=== PATIENT | male | born 1980 | race Caucasian/White ===

== ENCOUNTER 2023-08-31 19:51 | Emergency (ER) | payer OTHER ==
--- NOTE | 2023-08-31 20:30 | ED ---
General Adult HPI - General Source: patient, RN notes reviewed Mode of arrival: ambulatory Limitations: no limitations <Teresa Lincoln - Last Filed: 08/31/23 20:28> <Kimberli Grayson - Last Filed: 09/01/23 01:23> - General Chief complaint: Dental/Oral Stated complaint: Abcess Tooth Time Seen by Provider: 08/31/23 20:20 - History of Present Illness Initial comments: Quick note: 42-year-old male presents to the emergency department for evaluation of possible dental abscess. He states that his teeth have been bothering him for the past 3 to 4 days. He notes that he believes he has an abscess in the lower left dentition. He has not with this in the past. He is not currently on antibiotics. (Teresa Lincoln) 42-year-old male presenting with chief complaint of dental pain. Patient has known history of multiple dental caries and fractured teeth. States that for the last 4 days or so he has had pain and swelling to the left lower jaw. States that this feels similar to previous dental abscesses. He does not follow-up with a dentist, just got new insurance and is trying to find 1. No difficulty breathing or swallowing. No fevers or chills. No neck pain or stiffness. No drooling or muffled voice. (Kimberli Grayson) - Related Data Previous Rx's Medication Instructions Recorded Amoxic-Pot Clav 875-125Mg 1 tab PO BID 7 Days #14 tab 08/31/23 [Augmentin 875-125] Allergies Allergy/AdvReac Type Severity Reaction Status Date / Time No Known Allergies Allergy Verified 08/31/23 20:20 Review of Systems ROS Other: All systems not noted in ROS Statement are negative. <Teresa Lincoln - Last Filed: 08/31/23 20:28> ROS Other: All systems not noted in ROS Statement are negative. <Kimberli Grayson - Last Filed: 09/01/23 01:23> ROS Statement: Those systems with pertinent positive or pertinent negative responses have been documented in the HPI. Past Medical History Past Medical History: No Reported History History of Any Multi-Drug Resistant Organisms: None Reported Additional Past Surgical History / Comment(s): dental Past Psychological History: No Psychological Hx Reported Smoking Status: Current every day smoker Past Alcohol Use History: None Reported Past Drug Use History: None Reported <Teresa Lincoln - Last Filed: 08/31/23 20:28> General Exam Limitations: no limitations <Teresa Lincoln - Last Filed: 08/31/23 20:28> Limitations: no limitations General appearance: alert, in no apparent distress Head exam: Present: atraumatic, normocephalic Eye exam: Present: normal appearance, EOMI Expanded Mouth exam: Present: tongue normal. Absent: drooling, trismus, muffled voice Teeth exam: Present: dental caries, fractured tooth #, dental tenderness # Throat exam: normal inspection Neck exam: Present: normal inspection. Absent: meningismus Respiratory exam: Absent: respiratory distress Cardiovascular Exam: Present: regular rate Neurological exam: Present: alert, oriented X3 Psychiatric exam: Present: normal affect, normal mood Skin exam: Present: warm, dry <Kimberli Grayson - Last Filed: 09/01/23 01:23> - General Exam Comments Initial Comments: Visual Physical Exam Vital signs reviewed General: Well-appearing, nontoxic, no acute distress. Head: Normocephalic, atraumatic Eyes: PERRLA, EOMI ENT: Airway patent Chest: Nonlabored breathing Skin: No visual rash, normal skin tone Neuro: Alert and oriented 3 Musculoskeletal: No gross abnormalities (Teresa Lincoln) Course Vital Signs 08/31/23 20:18 Temperature 97.8 F Pulse Rate 90 Respiratory 18 Rate Blood Pressure 146/97 O2 Sat by Pulse 99 Oximetry Medical Decision Making <Teresa Lincoln - Last Filed: 08/31/23 20:28> <Kimberli Grayson - Last Filed: 09/01/23 01:23> - Medical Decision Making Quick note preformed and electronically signed by Teresa Lincoln PA-C (Teresa Lincoln) Was pt. sent in by a medical professional or institution (ANAYELI Pimentel, [employer]LECT[employer], urgent care, hospital, or detention...) When possible be specific @ -No Did you speak to anyone other than the patient for history (EMS, parent, family, police, friend...)? What history was obtained from this source @ -No Did you review nursing and triage notes (agree or disagree)? Why? @ -I reviewed and agree with nursing and triage notes Were old charts reviewed (outside hosp., previous admission, EMS record, old EKG, old radiological studies, urgent care reports/EKG's, detention records)? Report findings @ -No old charts were reviewed Differential Diagnosis (chest pain, altered mental status, abdominal pain women, abdominal pain men, vaginal bleeding, weakness, fever, dyspnea, syncope, headache, dizziness, GI bleed, back pain, seizure, CVA, palpatations, mental hea lth, musculoskeletal)? @ -Differential includes dental pain, dental abscess, Byron's angina, this is not an all-inclusive list EKG interpreted by me (3pts min.). @ -As above X-rays interpreted by me (1pt min.). @ -None done CT interpreted by me (1pt min.). @ -None done U/S interpreted by me (1pt. min.). @ -None done What testing was considered but not performed or refused? (CT, X-rays, U/S, labs)? Why? @ -None What meds were considered but not given or refused? Why? @ -None Did you discuss the management of the patient with other professionals (professionals i.e. , PA, ELECTRONIC GLUER, lab, RT, psych nurse, social work lecturer, mission planner, teacher, juvenile officer, outsole caser)? Give summary @ -No Was smoking cessation discussed for >3mins.? @ -No Was critical care preformed (if so, how long)? @ -No Were there social determinants of health that impacted care today? How? (Homelessness, low income, unemployed, alcoholism, drug addiction, transportation, low edu. Level, literacy, decrease access to med. care, long-term, rehab)? @ -No Was there de-escalation of care discussed even if they declined (Discuss DNR or withdrawal of care, Hospice)? DNR status @ -No What co-morbidities impacted this encounter? (DM, HTN, Smoking, COPD, CAD, Cancer, CVA, ARF, Chemo, Hep., AIDS, mental health diagnosis, sleep apnea, morbid obesity)? @ -None Was patient admitted / discharged? Hospital course, mention meds given and route, prescriptions, significant lab abnormalities, going to OR and other pertinent info. @ -42-year-old male presenting with chief complaint of dental pain and swelling to the left lower jaw. On exam there are multiple dental caries with dental tenderness. There is no obvious drainable abscess. Patient will be started on Augmentin. Provided with dental clinic follow-up. Discharged home. Follow-up with PCP. Report back to ER with any new or worsening symptoms. Discussed return parameters and answered all questions. Patient conveyed verbal understanding and agreed to the plan. I discussed this case in detail with my attending Dr. Olivier Undiagnosed new problem with uncertain prognosis? @ -No Drug Therapy requiring intensive monitoring for toxicity (Heparin, Nitro, Insulin, Cardizem)? @ -No Were any procedures done? @ -No Diagnosis/symptom? @ -Dental abscess Acute, or Chronic, or Acute on Chronic? @ -Acute Uncomplicated (without systemic symptoms) or Complicated (systemic symptoms)? @ -Uncomplicated Side effects of treatment? @ -No Exacerbation, Progression, or Severe Exacerbation? @ -No Poses a threat to life or bodily function? How? (Chest pain, [place], [place], pneumonia, PE, COPD, DKA, ARF, appy, cholecystitis, CVA, Diverticulitis, Homicidal, Suicidal, threat to staff... and all critical care pts) @ -No (Kimberli Grayson) Disposition <Teresa Lincoln - Last Filed: 08/31/23 20:28> Is patient prescribed a controlled substance at d/c from ED?: No Time of Disposition: 21:29 <Kimberli Grayson - Last Filed: 09/01/23 01:23> Clinical Impression: Dental abscess Disposition: HOME SELF-CARE Condition: Good Instructions (If sedation given, give patient instructions): Dental Abscess (ED) Additional Instructions: Please follow up with the [facility] dental clinic. [facility] [place] [address]. Phone number for new patients or [phone] for existing patients. Prescriptions: Amoxic-Pot Clav 875-125Mg [Augmentin 875-125] 1 tab PO BID 7 Days #14 tab Referrals: Leilani Rodríguez MD [Primary Care Provider] - 1-2 days
[2023-08-31 21:36] VITALS: BP 146/97; PULSE 90; RESP 18; TEMP 97.8
[2023-08-31] MEDS: ACET/COD 300 MG/30 MG STARTER PACK 6 TAB BTL PO STA (22:06)
[2023-08-31] MEDS: AMOXIC-POT CLAV 875MG STARTER PACK 2 TAB BTL PO STA (22:06)
== END 2023-08-31 22:07 | disposition home or self-care (01) ==
LOC: EC 19:51
DX: K04.7 Periapical abscess without sinus (principal); F17.200 Nicotine dependence, unspecified, uncomplicated
CPT/HCPCS: 99282

== ENCOUNTER 2024-04-17 16:00 | Emergency (ER) | payer OTHER ==
[2024-04-17 16:17] VITALS: RESP 18
--- NOTE | 2024-04-17 16:42 | ED ---
General Adult HPI - General Chief complaint: Dental/Oral Stated complaint: Dental pain/lower R side Time Seen by Provider: 04/17/24 16:30 Source: patient, RN notes reviewed, old records reviewed Mode of arrival: ambulatory Limitations: no limitations - History of Present Illness Initial comments: Patient is a 43-year-old male who presents emergency department complaining of dental pain. States pain started over the last 2 to 3 days. Has had some pain as he did break a tooth on the bottom right jaw 3 weeks ago however states that it has been worse over the last few days. Does have a history of dental abscess and feels that this may be contributing to his symptoms and presents for further evaluation has been he has been unable to follow-up with a dentist. He denies any difficulty breathing. Denies any difficulty in swallowing. Has no other acute complaints. No known drug allergies. Presents for pain relief and antibiotics. Has a chronic history of poor dentition. - Related Data Previous Rx's Medication Instructions Recorded Amoxic-Pot Clav 875-125Mg 1 tab PO BID 7 Days #14 tab 08/31/23 [Augmentin 875-125] Amoxic-Pot Clav 875-125Mg 1 tab PO Q12HR 10 Days #20 tab 04/17/24 [Augmentin 875-125] Allergies Allergy/AdvReac Type Severity Reaction Status Date / Time No Known Allergies Allergy Verified 04/17/24 16:13 Review of Systems ROS Statement: Those systems with pertinent positive or pertinent negative responses have been documented in the HPI. Review of Systems: CONST: Denies fever EYES: Denies blurry vision ENT: Endorses toothache C/V: Denies Chest pain RESP: Denies shortness of breath GI: Denies abdominal pain : Denies dysuria SKIN: Denies rash. MSK: Denies joint pain. NEURO: Denies headache ROS Other: All systems not noted in ROS Statement are negative. Past Medical History Past Medical History: Diabetes Mellitus Additional Past Medical History / Comment(s): gout History of Any Multi-Drug Resistant Organisms: None Reported Additional Past Surgical History / Comment(s): dental Past Psychological History: No Psychological Hx Reported Smoking Status: Current every day smoker Past Alcohol Use History: Occasional Past Drug Use History: Marijuana General Exam - General Exam Comments Initial Comments: General: Appears in no acute distress. HEAD: Normal with no signs of head trauma. EYES: EOMI. ENT: Hearing grossly intact. No stridor. No posterior oropharyngeal swelling. Uvula is midline. No tongue edema. No obvious periapical abscess present. Patient does have the chronically cracked tooth as well as overall poor dentition throughout his mouth. No submandibular edema or swelling. No stridor auscultated. No evidence of Ludewig's angina. RESPIRATORY: No respiratory distress. C/V: Regular rate and rhythm. ABD: Abdomen is nondistended. EXT: No obvious deformity. SKIN: No rashes or lesions observed on exposed skin. NEURO: Alert and oriented. Limitations: no limitations Course Vital Signs 04/17/24 16:14 Temperature 98.4 F Pulse Rate 82 Respiratory 18 Rate Blood Pressure 151/88 O2 Sat by Pulse 96 Oximetry Medical Decision Making - Medical Decision Making Was pt. sent in by a medical professional or institution (, PA, SCREEN PRINTING MACHINE LOADER UNLOADER, urgent care, hospital, or prison...) When possible be specific @ -No Did you speak to anyone other than the patient for history (EMS, parent, family, police, friend...)? What history was obtained from this source @ -No Did you review nursing and triage notes (agree or disagree)? Why? @ -I reviewed and agree with nursing and triage notes Were old charts reviewed (outside hosp., previous admission, EMS record, old EKG, old radiological studies, urgent care reports/EKG's, prison records)? Report findings @ -No old charts were reviewed Differential Diagnosis (chest pain, altered mental status, abdominal pain women, abdominal pain men, vaginal bleeding, weakness, fever, dyspnea, syncope, headache, dizziness, GI bleed, back pain, seizure, CVA, palpatations, mental health, musculoskeletal)? @ -Toothache, periapical abscess, Byron's angina. This list is not all inclusive. EKG interpreted by me (3pts min.). @ -None done X-rays interpreted by me (1pt min.). @ -None done CT interpreted by me (1pt min.). @ -None done U/S interpreted by me (1pt. min.). @ -None done What testing was considered but not performed or refused? (CT, X-rays, U/S, labs)? Why? @ -None What meds were considered but not given or refused? Why? @ -None Did you discuss the management of the patient with other professionals (professionals i.e. , PA, SCREEN PRINTING MACHINE LOADER UNLOADER, lab, RT, psych nurse, social service director, wire basket maker, teacher, unarmed security officer, medical case worker)? Give summary @ -No Was smoking cessation discussed for >3mins.? @ -No Was critical care preformed (if so, how long)? @ -No Were there social determinants of health that impacted care today? How? (Homelessness, low income, unemployed, alcoholism, drug addiction, transportation, low edu. Level, literacy, decrease access to med. care, [facility], rehab)? @ -No Was there de-escalation of care discussed even if they declined (Discuss DNR or withdrawal of care, Hospice)? DNR status @ -No What co-morbidities impacted this encounter? (DM, HTN, Smoking, COPD, CAD, Cancer, CVA, ARF, Chemo, Hep., AIDS, mental health diagnosis, sleep apnea, morbid obesity)? @ -None Was patient admitted / discharged? Hospital course, mention meds given and route, prescriptions, significant lab abnormalities, going to OR and other pertinent info. @ -Patient is a 43-year-old male who presents with a toothache. Exam is relatively unremarkable except for cracked tooth. This occurred 3 weeks ago. States he is now having some pain radiating to his jaw. This could be n europathic pain or possibly early infection however exam is relatively unremarkable in terms of that. Patient empirically will be started on Augmentin. He will be given a dose of Decadron. Will also be given analgesia medications. Patient was in agreement this plan. Vital signs are within acceptable limits. No difficulty breathing. No difficulty in swallowing. Protecting his airway. Recommended follow-up with dentistry as soon as possible. He was in agreement this plan. I will provide the patient with a prescription for Augmentin, Tylenol 3 starter pack. I instructed the patient to follow up with their PCP in the next 1-3 days. I provided contact information for follow up with oral surgery. I explained that the patient should return to the emergency department if they experience any worsening symptoms. Strict return precautions were discussed with the patient. The patient expressed understanding of these instructions. I answered all questions that the patient had. The patient was discharged home in good condition with their prescriptions and follow up information. Undiagnosed new problem with uncertain prognosis? @ -No Drug Therapy requiring intensive monitoring for toxicity (Heparin, Nitro, Insulin, Cardizem)? @ -No Were any procedures done? @ -No Diagnosis/symptom? @ -Toothache Acute, or Chronic, or Acute on Chronic? @ -Acute Uncomplicated (without systemic symptoms) or Complicated (systemic symptoms)? @ -Uncomplicated Side effects of treatment? @ -No Exacerbation, Progression, or Severe Exacerbation? @ -No Poses a threat to life or bodily function? How? (Chest pain, [place], [place], pneumonia, PE, COPD, DKA, ARF, appy, cholecystitis, CVA, Diverticulitis, Homicidal, Suicidal, threat to staff... and all critical care pts) @ -Unlikely at this time Disposition Clinical Impression: Toothache Disposition: HOME SELF-CARE Condition: Good Instructions (If sedation given, give patient instructions): Toothache (ED) Additional Instructions: Follow-up with dentistry soon as possible. You can attempt to contact this oral surgeon provided for follow-up. Return if any worsening symptoms. Follow-up with your PCP in the next 1 to 3 days. Prescriptions: Amoxic-Pot Clav 875-125Mg [Augmentin 875-125] 1 tab PO Q12HR 10 Days #20 tab Is patient prescribed a controlled substance at d/c from ED?: No Referrals: Leilani Rodríguez MD [Primary Care Provider] - 1-2 days Luís Heard DDS [STAFF PHYSICIAN] - 1-2 days Time of Disposition: 16:48
[2024-04-17] MEDS: dexAMETHasone 2 MG TAB PO STA (16:47)
[2024-04-17] MEDS: AMOXIC-POT CLAV 875-125MG 1 EACH TAB PO STA (16:47)
[2024-04-17] MEDS: MORPHINE SULFATE 4 MG/ML SYRINGE IM STA (16:47)
[2024-04-17] MEDS: ACET/COD 300 MG/30 MG STARTER PACK 6 TAB BTL PO STA (16:47)
[2024-04-17 17:07] VITALS: BP 140/80; PULSE 80; TEMP 98.6
== END 2024-04-17 17:06 | disposition home or self-care (01) ==
LOC: EC 16:00
DX: K08.89 Other specified disorders of teeth and supporting structures (principal); F17.200 Nicotine dependence, unspecified, uncomplicated
CPT/HCPCS: 99282; 96372; J2270; J8540